=== PATIENT | male | born 1965 | race Caucasian/White ===

== ENCOUNTER 2017-03-23 18:50 | Inpatient (IN) | payer OTHER ==
[~2017-03-23] VITALS: Ht 177.8 cm; Wt 91.2 kg
[2017-03-24 01:35] VITALS: BP 135/79
[2017-03-24 09:15] VITALS: BP 130/67
[2017-03-24 14:00] VITALS: BP 161/85
[2017-03-24] MEDS ORDERED: COZAAR100 MG PO (16:27)
[2017-03-24 18:00] VITALS: BP 169/92
[2017-03-24 20:34] VITALS: BP 163/85
[2017-03-24 21:25] VITALS: BP 137/83
[2017-03-25] VITALS (7 sets, daily range): BP systolic 144–167; BP diastolic 79–88
[2017-03-25 06:00] LABS: CALCIUM 8.5 mg/dL (8.5-10.1); CARBON DIOXIDE 22.5 mmol/L (21-32); CHLORIDE SERUM 102 mmol/L (98-107); CREATININE SERUM 0.8 mg/dL (0.7-1.3); GFR1 > 60 mL/min; GLUCOSE SERUM 189 mg/dL (74-106); POTASSIUM SERUM 3.8 mmol/L (3.5-5.1); SODIUM SERUM 136 mmol/L (136-145)
[2017-03-25 06:33] LABS: BASOPHIL % 0.1 % (0-2); PLATELET COUNT 186 x10^3mcL (130-400); RED CELL DISTRIBUTION WIDTH 12.7 % (11.5-14.5)
[2017-03-26 05:31] VITALS: BP 153/91
[2017-03-26 05:56] LABS: CALCIUM 8.3 mg/dL (8.5-10.1); CARBON DIOXIDE 22.7 mmol/L (21-32); CHLORIDE SERUM 103 mmol/L (98-107); CREATININE SERUM 0.8 mg/dL (0.7-1.3); GFR1 > 60 mL/min; GLUCOSE SERUM 189 mg/dL (74-106); POTASSIUM SERUM 3.7 mmol/L (3.5-5.1); SODIUM SERUM 136 mmol/L (136-145)
[2017-03-26 07:17] LABS: BASOPHIL % 0.3 % (0-2); PLATELET COUNT 216 x10^3mcL (130-400)
[2017-03-26 10:33] VITALS: BP 154/90
[2017-03-26 13:16] VITALS: BP 154/90
[2017-03-26 14:25] VITALS: BP 142/86
== END 2017-03-26 17:16 | disposition other institution (70) | DRG 871 ==
LOC: ED 18:50 → DU 03-24 00:31
PROVIDERS: ADMIT Internal Medicine
DX: A41.9 Sepsis, unspecified organism (principal); G93.41 Metabolic encephalopathy; N39.0 Urinary tract infection, site not specified; I10 Essential (primary) hypertension; E11.9 Type 2 diabetes mellitus without complications
CPT/HCPCS: 82962; J0696; J2270; J2405; J3490; J7030; Q0092; Q0162